=== PATIENT | male | born 1980 | race Caucasian/White ===

== ENCOUNTER 2016-10-09 21:24 | Emergency (ER) | payer BC, OTHER ==
[~2016-10-09] VITALS: Ht 182.9 cm; Wt 116.5 kg
[2016-10-09 21:32] VITALS: Ht 182.9 cm; Wt 116.5 kg
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
--- NOTE | 2016-10-09 23:25 | RADRPT ---
PROCEDURE: CT brain without contrast CLINICAL INDICATION: Headaches following head injury TECHNIQUE: A CT of the brain was performed utilizing axial sections from the skull base through th e vertex without contrast. Sagittal and coronal images were also reformatted. The exam CTDIvol = 40. 63 mGy and DLP = 720.23 mGy-cm. COMPARISON: None available FINDINGS: No acute intracranial hemorrhage is identified. There is no mass effect or midline shift. No extra -axial fluid collection is seen. The ventricles and sulci are within normal limits for size and con figuration. The density of the brain is within normal limits. Tolention-white differentiation is preser brittney. The osseous structures are unremarkable. Trace amount of fluid within the dependent right mastoid a ir cells is present. The left mastoid air cells and paranasal sinuses visualized are clear RPTAT:HJJR IMPRESSION: 1.Unremarkable noncontrast CT of the brain. 2. Trace amount of inferior right mastoid air cell fluid. Physician Talia Date Time Electronically viewed and signed by Physician Talia on 10/09/2016 23:25 /
--- NOTE | 2016-10-09 23:28 | RADRPT ---
PROCEDURE: CT cervical spine without contrast. CLINICAL INDICATION: Injury. Post traumatic neck pain TECHNIQUE: CT of the cervical spine without contrast was performed. Axial images were obtained th rough the cervical spine and reformatted at 1.25 mm slice thickness. Coronal and sagittal images wer e reformatted. Exam CTDIvol = 23.04 mGy and DLP = 518.15 mGy-cm. COMPARISON: None available. FINDINGS: Vertebral bodies: The lordosis is straightened. Stature is preserved at every level. There is norm al mineralization and trabeculation. The C1 ring is intact. The predental space is preserved. The occipital condyles are normal in position. Central canal and cervical spinal cord: No abnormal density within the spinal cord is evident and no intraspinal masses are delineated. C2-3: The disk is within normal limits. The facet joints are normal. The uncovertebral joints and f oramina are unremarkable. No posterior element fracture or paraspinal soft tissue abnormality is dem onstrated. C3-4: The disk is within normal limits. The facet joints are normal. The uncovertebral joints and foramina are unremarkable.No posterior element fracture or paraspinal soft tissue abnormality is dem onstrated. C4-5: The disk is within normal limits. The facet joints are normal. The uncovertebral joints and foramina are unremarkable.No posterior element fracture or paraspinal soft tissue abnormality is dem onstrated. C5-6: The disk is within normal limits. The facet joints are normal. The uncovertebral joints and foramina are unremarkable.No posterior element fracture or paraspinal soft tissue abnormality is dem onstrated. C6-7: The disk is within normal limits. The facet joints are normal. The uncovertebral joints and foramina are unremarkable.No posterior element fracture or paraspinal soft tissue abnormality is de monstrated. C7-T1: The disk is within normal limits. The facet joints are normal. The uncovertebral joints and foramina are unremarkable. No posterior element fracture or paraspinal soft tissue abnormality is de monstrated. Non spine related findings: No abnormalities of significance are seen. RPTAT:HJJR IMPRESSION: 1. No evidence of cervical spine fracture. 2. The lordosis is mildly straightened which may be from positioning but cannot exclude muscle spas m. Josh Kebede, Physician Date Time Electronically viewed and signed by Josh Kebede Physician on 10/09/2016 23:28 JR/
--- NOTE | 2016-10-09 23:32 | RADRPT ---
PROCEDURE: CT Lumbar Spine without contrast. CLINICAL INDICATION: Post traumatic low back pain. TECHNIQUE: CT of the lumbar spine without contrast was performed. Axial images were obtained thro [facility] the lumbar spine and reformatted at 2.5 mm slice thickness. Coronal and sagittal images were ref ormatted. The CTDIvol = 38.54 mGy and DLP = 1151.95 mGy-cm. COMPARISON: None available FINDINGS: Vertebral bodies: There is preservation of lordosis, stature, mineralization and attenuation of the five [id number]-xkyxngr levels. Conus medularis region: Normal in attenuation and location estimated at the L1 level. A congenital e lement of spinal canal stenosis is present from short pedicles T12-L1: No discogenic abnormality of significance is seen. There is no facet arthropathy. The centr al canal is patent. There is no evidence for foraminal stenosis. L1-L2: No discogenic abnormality of significance is seen. There is no facet arthropathy. The ligamen cydney flava are normal in thickness. The central canal is patent. There is no evidence for foraminal stenosis. L2-L3: No discogenic abnormality of significance is seen. There is no facet arthropathy. The ligamen cydney flava are normal in thickness. The central canal is patent. There is no evidence for foraminal stenosis. L3-L4:No discogenic abnormality of significance is seen. There is no facet arthropathy. The ligament um flava are normal in thickness. No acquired central stenosis is present. There is no evidence fo r foraminal stenosis. L4-L5: Preservation of disk stature with annular disk bulging of approximately 3 mm but no focal pro trusion. There is no facet arthropathy. The ligamentum flava are normal in thickness. No acquired c entral canal stenosis is present. There is no evidence for foraminal stenosis. L5-S1: Trace disk narrowing is seen with annular disk bulging of approximately 2 mm but no evidence of focal disk protrusion. There is no facet arthropathy. The ligamentum flava are normal in thicknes s. No acquired central canal stenosis is present. There is no evidence for foraminal stenosis. Sacrum and sacroiliac joints: No abnormalities are identified, the joints are normal and symmetric. None spine related findings: No abnormalities are demonstrated. RPTAT:HJJR IMPRESSION: 1. No evidence of acute post traumatic lumbar spine abnormality. 2. 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 3. Mild disk bulging at the L4-5 and L5-S1 without disk protrusion or significant acquired central canal stenosis. Josh Kebede Physician Date Time Electronically viewed and signed by Josh Kebede Physician on 10/09/2016 23:31 JR/
[2016-10-10] MEDS ORDERED: HYDR-906 PO (00:10)
[2016-10-10] MEDS ORDERED: IBUP-1542 PO (00:10)
[2016-10-10] MEDS ORDERED: CYCL-319 PO (00:10)
[2016-10-10] MEDS ORDERED: HYDROCODONE/APAP (5/325) TAB PO ONE (00:30)
[2016-10-10 00:40] VITALS: BP 124/77; PULSE 75; RESP 20; TEMP 98
== END 2016-10-10 00:40 | disposition home or self-care (01) ==
LOC: FTE 21:24
DX: S06.0X0A Concussion without loss of consciousness, initial encounter (principal); S39.012A Strain of muscle, fascia and tendon of lower back, initial encounter; S16.1XXA Strain of muscle, fascia and tendon at neck level, initial encounter; T22.10XA Burn of first degree of shoulder and upper limb, except wrist and hand, unspecified site, initial encounter; F17.210 Nicotine dependence, cigarettes, uncomplicated; V49.40XA Driver injured in collision with unspecified motor vehicles in traffic accident, initial encounter; X19.XXXA Contact with other heat and hot substances, initial encounter; Y92.410 Unspecified street and highway as the place of occurrence of the external cause
CPT/HCPCS: 70450; 72125; 72131; Z7502; Z7610